=== PATIENT | male | born 1960 | race Caucasian/White ===

== ENCOUNTER 2018-04-30 20:37 | Outpatient (RCR) | payer MEDICARE, SELFPAY ==
[2018-04-30 21:14] LABS: ALT 39 U/L (12-78); Anion Gap 6.2 mmol/L (3-11); BUN 18 mg/dL (7-18); CO2 31.8 mmol/L (21.0-32.0); CREATININE 1.18 mg/dL (0.70-1.30); Calcium 9.2 mg/dL (8.5-10.1); Chloride 99 mmol/L (98-107); Cholesterol 219 mg/dL (50-200); Glucose 213 mg/dL (70-100); HDL Cholesterol 33 mg/dL (40-60); LDL CHOLESTEROL 163 mg/dL (<100); Potassium 4.6 mmol/L (3.5-5.1); Sodium 137 mmol/L (136-145); Triglyceride 246 mg/dL (30-150)
== END 2018-05-12 23:59 | disposition home or self-care (01) ==
LOC: NCHCN 20:37
PROVIDERS: PCP Family Medicine; Visit Provider Family Medicine
DX: I10 Essential (primary) hypertension (principal)
CPT/HCPCS: 80048; 80061; 83721; 84460

== ENCOUNTER 2018-11-11 10:52 | Outpatient (REF) | payer MEDICARE, SELFPAY ==
[2018-11-11 22:30] LABS: COMMENT (LAB VIEW ONLY) 22.92 mg/dL
== END 2018-11-11 11:12 ==
LOC: NCHCN 10:52
PROVIDERS: PCP Family Medicine; Visit Provider Family Medicine
DX: E11.9 Type 2 diabetes mellitus without complications (principal)
CPT/HCPCS: 82043; 82570

== ENCOUNTER 2020-01-27 13:12 | Outpatient (REF) | payer MEDICARE, SELFPAY ==
[2020-01-27 21:40] LABS: ALT 49 U/L (16-63); AST 27 U/L (15-37); Albumin 3.9 g/dL (3.4-5.0); Alkaline Phosphatase 78 U/L (46-116); Anion Gap 7.7 mmol/L (3-11); BUN 17 mg/dL (7-18); CO2 28.3 mmol/L (21.0-32.0); CREATININE 1.12 mg/dL (0.70-1.30); Calcium 8.9 mg/dL (8.5-10.1); Calculated LDL 87 mg/dL (<100); Chloride 102 mmol/L (98-107); Cholesterol 140 mg/dL (<200); Glucose 130 mg/dL (74-106); HDL Cholesterol 34 mg/dL (40-60); Potassium 4.3 mmol/L (3.5-5.1); Sodium 138 mmol/L (136-145); Total Protein 7.7 g/dL (6.4-8.2); Triglyceride 97 mg/dL (<150)
[2020-01-30 09:46] LABS: PSA, Screening 1.3 ng/mL (0.0-4.5)
== END 2020-01-27 13:32 ==
LOC: NCHCN 13:12
PROVIDERS: PCP Family Medicine; Visit Provider Family Medicine
DX: I10 Essential (primary) hypertension (principal); E78.5 Hyperlipidemia, unspecified; Z12.5 Encounter for screening for malignant neoplasm of prostate
CPT/HCPCS: 80053; 80061; 84153

== ENCOUNTER 2020-07-24 18:37 | Outpatient (REF) | payer MEDICARE, SELFPAY ==
[2020-07-24 14:15] LABS: COMMENT (LAB VIEW ONLY) 17.66 mg/dL
== END 2020-07-24 18:57 ==
LOC: NCHCN 18:37
PROVIDERS: PCP Family Medicine; Visit Provider Family Medicine
DX: E11.9 Type 2 diabetes mellitus without complications (principal); R80.9 Proteinuria, unspecified
CPT/HCPCS: 82043; 82570

== ENCOUNTER 2021-01-23 14:59 | Outpatient (REF) | payer MEDICARE, SELFPAY ==
[2021-01-23 21:35] LABS: ALT 34 U/L (16-63); AST 24 U/L (15-37); Albumin 3.9 g/dL (3.4-5.0); Alkaline Phosphatase 75 U/L (46-116); Anion Gap 7.2 mmol/L (3-11); BUN 19 mg/dL (7-18); Bilirubin, Total 0.9 mg/dL (0.2-1.0); CO2 27.8 mmol/L (21.0-32.0); CREATININE 1.2 mg/dL (0.70-1.30); Calcium 8.9 mg/dL (8.5-10.1); Chloride 103 mmol/L (98-107); Glucose 174 mg/dL (74-106); Potassium 4.1 mmol/L (3.5-5.1); Sodium 138 mmol/L (136-145); Total Protein 7.6 g/dL (6.4-8.2)
[2021-01-23 22:13] LABS: Calculated LDL 67 mg/dL (<100); Cholesterol 122 mg/dL (<200); HDL Cholesterol 38 mg/dL (40-60); Triglyceride 88 mg/dL (<150)
== END 2021-01-23 15:00 | disposition home or self-care (01) ==
LOC: NCHCN 14:59
PROVIDERS: PCP Family Medicine; Visit Provider Family Medicine
DX: E11.9 Type 2 diabetes mellitus without complications (principal); I10 Essential (primary) hypertension; R80.9 Proteinuria, unspecified; F51.04 Psychophysiologic insomnia; E78.5 Hyperlipidemia, unspecified
CPT/HCPCS: 80053; 80061

== ENCOUNTER 2022-05-05 14:14 | Outpatient (REF) | payer MEDICARE, SELFPAY ==
[2022-05-06 22:23] LABS: PSA, Screening 3.2 ng/mL (<=4.5)
== END 2022-05-05 14:15 | disposition home or self-care (01) ==
LOC: NCHCN 14:14
PROVIDERS: PCP Family Medicine; Visit Provider Nurse Practitioner Family
DX: Z12.5 Encounter for screening for malignant neoplasm of prostate (principal)
CPT/HCPCS: 84153

== ENCOUNTER 2022-05-22 16:31 | Outpatient (REF) | payer MEDICARE, SELFPAY ==
[2022-05-22 22:38] LABS: PSA, Screening 4.2 ng/mL (<=4.5)
== END 2022-05-22 16:32 | disposition home or self-care (01) ==
LOC: NCHCN 16:31
PROVIDERS: PCP Family Medicine; Visit Provider Nurse Practitioner Family
DX: R97.20 Elevated prostate specific antigen [PSA] (principal); Z12.5 Encounter for screening for malignant neoplasm of prostate
CPT/HCPCS: 84153

== ENCOUNTER 2022-05-27 16:40 | Outpatient (REF) | payer MEDICARE, SELFPAY ==
[2022-05-27 21:46] LABS: COMMENT (LAB VIEW ONLY) 167.62 mg/dL
== END 2022-05-27 16:41 | disposition home or self-care (01) ==
LOC: NCHCN 16:40
PROVIDERS: PCP Family Medicine; Visit Provider Family Medicine
DX: E11.9 Type 2 diabetes mellitus without complications (principal)
CPT/HCPCS: 82043; 82570